=== PATIENT | male | born 1955 | race Caucasian/White ===

== ENCOUNTER 2020-07-26 02:24 | Outpatient (CLI) | payer MEDICARE, SELFPAY ==
[2020-07-27 16:44] LABS: COVID-19 RT-PCR Result NEGATIVE (Negative)
== END 2020-07-26 02:44 ==
PROVIDERS: Visit Provider Nurse Practitioner Gerontology
DX: Z11.59 Encounter for screening for other viral diseases (principal); Z01.818 Encounter for other preprocedural examination
CPT/HCPCS: U0003

== ENCOUNTER 2020-07-29 08:18 | Day surgery (SDC) | payer MEDICARE, SELFPAY ==
[2020-07-29] VITALS (8 sets, daily range): BP systolic 118–140; BP diastolic 73–97; PULSE 70–79; RESP 14–16; TEMP 36–36.4; O2SAT 96–97
--- NOTE | 2020-07-29 07:43 | HPE_ITS ---
Assessment and Plan Assessment and plan (1) Gross hematuria: Status: Acute Assessment and plan: For cystoscopy with retrograde pyelogram. Depending on the findings, we may perform TURBT, stent placement or ureteroscopy History of Present Illness History of Present Illness Chief Complaint: Gross hematuria Narrative: This is a 64-year-old gentleman who has had multiple episodes of gross painless hematuria over the past 6 months. His evaluation has included a renal ultrasound ([facility] 05/2020) which showed an atrophic left kidney with hydronephrosis. No bladder abnormality is seen. He presents for cystoscopy with bilateral retrograde pyelogram to complete his hematuria work-up. We will be prepared to do a transurethral resection of any bladder tumor that is identified cystoscopically. Review of Systems Narrative: No fevers or chills No vision change or dysphasia No thyroid dysfunction. New dx Diabetes Mellitus No shortness of breath, cough or hemoptysis No chest pain or palpitations No nausea, vomiting, hepatitis, ulcers, jaundice, diarrhea or constipation No seizures, strokes or peripheral neuropathy No bleeding disorders or anemia No gout PFSH Medical History Diabetes HTN (hypertension) Obesity Surgical History (Updated 07/29/20 @ 08:56 by Goldie Lopes) History of colonoscopy History of vasectomy Social History Smoking/Tobacco Use Status: Current every day Tobacco Type: cigars Smoking risk assessment performed?: Yes Alcohol Intake: current Alcohol Intake frequency: a few times a month Alcohol type: wine Drug use: Never Substance use type: does not use Details: alcohol: wine, t-3 Do you feel safe at home: Yes Do you feel safe in your relationship?: Yes Meds Home Medications and Allergies Home Medications Medication Instructions Recorded Confirmed Type metformin 500 mg tablet 500 mg PO BID 05/28/20 07/29/20 History aspirin-caffeine [Kimberly Back and 2 tab PO 07/29/20 History Body] Allergies Allergy/AdvReac Type Severity Reaction Status Date / Time No Known Allergies Allergy Verified 07/29/20 08:55 Exam Const General: cooperative and no acute distress Neck Neck: supple Resp Effort & Inspection: normal respiratory effort Auscultation: clear to auscultation bilaterally Cardio Rate: regular rate Rhythm: regular rhythm GI Inspection: obesity Palpation: soft and nontender Neuro General: patient alert, patient awake and patient oriented x3 COVID-19 Screening Have you, or household traveled for leisure in last 14 days?: No Had IN PERSON contact w/suspected or confirmed C-19 person: No
[2020-07-29] MEDS: Lactated Ringers 1,000 ML 80 ML IV (09:16)
[2020-07-29] MEDS: ceFAZolin 1 GM/50 ML BAG IVPB (10:43)
[2020-07-29] MEDS: Lidocaine 2% Jelly 6 ML SYR (10:59)
--- NOTE | 2020-07-29 11:17 | PAPNONF_PTH ---
PATIENT: LORENA GAO LOC: [facility] U#:[id number] AGE/SX: 64/M ROOM: RE07/29/[address]: Ruben Wilkes MD : 1955 BED: DIS: 07/29/2020 SPEC #: [id number] RECD: 07/29/20 13:00 STATUS: JAYESH LOPEZ #: [id number] ROCHELLE: 07/29/20 11:[address]: Ruben Wilkes DEPT: [facility] Cytology RECD BY: Ching Love ENTERED: 07/29/20 13:00 SP TYPE: KANDIS PINA DR: Tobi Hernández Tissues: 1 - BODY FLUID CYTO(SPUTUM/URINE)[facility] Procedures: BODY FLUID CYTO(URINE/SPUTUM) Comments: [id number] (TOTAL VOLUME = 30 ml's) (30 ml's URINE & 30 ml's CYTOLYT ADDED)
[2020-07-29] MEDS: Omnipaque 300 MG/ML 50 ML BTL (11:20)
--- NOTE | 2020-07-29 11:32 | DI.RAD_ITS ---
EXAM: XR RETROGRADE IN OR CLINICAL HISTORY: GROSS HEMATURIA COMPARISON: No exams were available for comparison FINDINGS: C-arm fluoroscopy was utilized by Dr. Wilkes during retrograde ureterography. Please see Dr. Wilkes's procedure note. Fluoro time 210 seconds. RADIATION DOSE DELIVERED: Total DLP Total DLP
--- NOTE | 2020-07-29 11:37 | W.PM.DSUDISC ---
Discharge Plan Disposition Patient Disposition: HOME Condition: Stable Discharge Details Attending Provider: Ruben Wilkes Primary Care Provider: Tobi Hernández Home Meds and New Rx's Prescriptions: No Action metformin 500 mg tablet 500 mg PO BID RF: 0 Kimberly Back and Body 500-32.5 mg Tablet 2 tab PO RF: 0 Discharge Instructions Additional Instructions: Pt will be called by my office to arrange CT scan and cystoscopy, stent removal and ureteroscopy with biopsy or ureteral mass in OR May remove ramírez catheter prior to discharge if urine is transparent - if urine remains dark, may discharge with ramírez to leg bag and we can remove catheter in office once urine becomes transparent Activity:: Activity as Tolerated Shower/Bathe:: 24 hours Diet:: As Tolerated Discharge Orders Discharge Orders: Discharge Order (Routine); Ordered 07/29/20 Ordered By: Ruben Wilkes DS: Diagnosis Discharge Diagnosis (1) Gross hematuria: Status: Acute
--- NOTE | 2020-07-29 11:49 | ROE_ITS ---
Date of service: 07/29/20 Time of Service: 11:50 Operative Note Operative Note DATE OF PROCEDURE: 07/29/20 PRE-OP DIAGNOSIS: Gross hematuria Left hydronephrosis POST-OP DIAGNOSIS: other (same secondary to left ureteral mass) PROCEDURE: Cystoscopy, bilateral retrograde pyelogram, left ureteral aspiration for cytology, insert left ureteral stent SURGEON: Ruben Wilkes ANESTHESIA: other ESTIMATED BLOOD LOSS: 100 PATHOLOGY: other (left ureteral aspiration for cytology) COMPLICATIONS: None Patient was transported to: PACU Patient's condition: stable Implants: 6 Macedonian by 22 to 30 cm left ureteral stent Folety catheter Indications: This is a 64-year-old gentleman who has a history of intermittent gross hematuria. He was evaluated with a renal ultrasound which showed a normal right kidney but the left hydronephrosis with a loss of parenchyma. He presents for cystoscopy with bilateral retrograde pyelogram to complete his hematuria work-up. Findings: Distal left ureteral filling defect with markedly dilated left ureter and upper tracts above level of filling defect Grossly bloody fluid aspirated from ureter above filling defect Procedure Description: The patient was brought to the operating room on 07/29/2020. He was given preoperative IV antibiotics. After successful induction of general anesthesia, he was placed in the dorsal lithotomy position. His genitalia was prepped and draped. 2% Xylocaine jelly was instilled into the urethra to act as a local anesthetic. A 22 Macedonian rigid cystoscope was passed through the urethra into the bladder. The urethra and bladder were inspected with a 30 degree lens. The pendulous, bulbous and membranous urethra was all appeared normal with no strictures. The prostatic urethra showed lateral lobe enlargement and a slightly elevated bladder neck. No papillary or nodular lesions were seen in the prostatic urethra. The bladder neck was entered and the bladder mucosa was inspected. The right ureteral orifice appeared normal. No blood was seen coming from the right side. The left ureteral orifice also appeared normal but I saw no outflow of urine from the left side. I began by cannulating the right ureteral orifice using a 6 Macedonian access catheter. A retrograde pyelogram was then performed by injecting Omnipaque through the access catheter under fluoroscopic guidance. The right ureter and collecting system appeared normal. On the left side, I was able to cannulate the left ureteral orifice and injected Omnipaque. There appeared to be a filling defect in the distal ureter. I was unable to maneuver the access catheter above the level of this filling defect. I was then able to pass a angled tipped guidewire through the lumen of the catheter up above the level of the filling defect. I again injected Omnipaque and found that the remainder of the ureter was markedly dilated the renal pelvis and collecting system was markedly dilated as well. Aspiration of fluid from the ureter revealed dark brown old blood and a hydronephrotic drip. I collected this fluid and sent it to pathology for cytology exam. I was then able to pass a guidewire up to the level of the renal pelvis. I passed a 6 Macedonian variable length stent over the wire and positioned the stent such that one end was curled in the upper ureter (not the renal pelvis) and the other end was curled within the bladder. Once the stent was placed, a large amount of dark urine was draining from that left kidney. I passed an 18 Macedonian Quigley catheter through the urethra into the bladder. I inflated the catheter balloon with 10 cc of sterile water and hand irrigated the catheter. The catheter was then hooked to gravity drainage. Based on today's findings, I am concerned that he has a urothelial carcinoma of the distal ureter. The bloody fluid made it impossible to visualize the mass ureteroscopically today. We will plan to return to the operating room in a week or so to do ureteroscopy and possible ureteral biopsy. The patient tolerated this procedure well.
[2020-07-29] MEDS: Phenazopyridine 200 MG TAB PO (12:42)
== END 2020-07-29 15:30 | disposition home or self-care (01) ==
PROVIDERS: PCP Family Medicine; Visit Provider Urology
PROC: (CPT 74450; principal; 2020-07-29 09:30)
DX: R31.0 Gross hematuria (principal); E11.9 Type 2 diabetes mellitus without complications; I10 Essential (primary) hypertension; F17.290 Nicotine dependence, other tobacco product, uncomplicated
CPT/HCPCS: 52332; 52351; NC; 74420; 88104; J0690; J2001; J2405; J2704; Q9967

== ENCOUNTER → 2020-07-31 09:39 | Outpatient (BNVA) | payer MEDICARE, SELFPAY | PROVIDERS: PCP Family Medicine; Referring Provider Family Medicine; Visit Provider Nurse Practitioner Gerontology | DX: Z48.816 Encounter for surgical aftercare following surgery on the genitourinary system (principal); R31.0 Gross hematuria | CPT/HCPCS: 99213 ==

== ENCOUNTER → 2020-08-30 04:31 | Outpatient (CLI) | payer MEDICARE, SELFPAY ==
--- NOTE | 2020-08-30 07:00 | DI.CT_ITS ---
EXAM: CT ABDOMEN PELVIS WO/W CLINICAL HISTORY: r/o local extension/mets,GROSS HEMATURIA,R31.0,URETERAL MASS,N28.89 TECHNIQUE: Imaging Protocol: Axial computed tomography images with coronal and sagittal reformatted images were created and reviewed CONTRAST MATERIAL: Intravenous: Omnipaque 350 Contrast volume:100 mL Oral: Yes COMPARISON: RF XR RETROGRADE IN OR from 07/29/2020 RF XR RETROGRADE IN OR from 07/29/2020 FINDINGS: ABDOMEN: Lung Bases: Normal where visualized. Liver: Diffuse decreased density consistent with fatty infiltration. There are a few tiny hypodensit ies in the right lobe of the liver. They are too small for further characterization but likely refle ct small cysts. Portal, Superior Mesenteric, and Splenic Veins: Unremarkable. Gallbladder and Biliary Tract: Cholelithiasis. No biliary ductal dilatation. Pancreas: Normal density, no abnormal calcifications or inflammatory process. Spleen: Normal. Adrenals: No masses seen. Kidneys: The right kidney shows normal enhancement. Nonobstructing stones are seen in the right kidn ey. No evidence of a right renal mass. There is a soft tissue mass seen in the distal 3rd of the le ft ureter measuring approximately 4.2 cm in length. There is no extension beyond the ureter into the adjacent soft tissues. There is marked hydronephrosis and hydroureter proximally. There is diffuse marked left renal cortical atrophy. There is a left nephroureteral stent in place. The proximal pi gtail is seen in the ureter distal to the ureteral pelvic junction. There is no excretion of contras t from the left kidney seen on the delayed images. Abdominal Aorta: Abdominal portion non-dilated. Bowel: No obstruction or bowel wall thickening. Appendix is unremarkable. Peritoneal Cavity: No ascites, collection or mesenteric inflammatory response. Lymph Nodes: Within normal limits. Bones: Degenerative changes are seen in the spine. No suspicious lytic or sclerotic lesions are seen in the bones. Soft Tissues: Unremarkable. PELVIS: Bladder: The distal left pigtail is seen in the urinary bladder. The urinary bladder is otherwise un remarkable. Reproductive Organs: The prostate gland is enlarged and impinges upon the base of the urinary bladder . Lymph Nodes: Within normal limits. Bones: No suspicious lytic or sclerotic lesions are seen in the bones. IMPRESSION: 1. 4.2 cm soft tissue mass in the distal left ureter causing marked hydronephrosis. There is marked l eft renal cortical atrophy. No excretion of contrast is seen from the left kidney on the 7 minutes de layed images. No evidence of involvement of the surrounding soft tissues by the distal ureteral mass. 2. No evidence of metastatic disease. 3. Enlarged prostate gland with management on the base of the urinary bladder. While this may represe nt benign hypertrophy of the prostate, mass cannot be excluded. 4. Hepatic steatosis. 5. Cholelithiasis. No biliary ductal dilatation. RADIATION DOSE DELIVERED: 3,438.98mGy.cm Total DLP 3,438.98mGy.cm Total DLP DATA REPOSITORY: All CT scans at this facility are submitted to the National Radiology Data Registry (NRDR) Dose Index Registry (DIR) with the [employer] (ACR). RADIATION OPTIMIZATION: All CT scans at this facility use at least one of these dose optimization te chniques: automated exposure control; mA and/or kV adjustment per patient size (includes targeted exa ms where dose is matched to clinical indication); or iterative reconstruction.
[2020-08-30 09:28] LABS: CREATININE 1.46 mg/dL (0.70-1.30); Estimated GFR 48.31 (mL/min/1.73m2)
[2020-08-30] MEDS: Omnipaque 350 MG/ML 100 ML BTL IJ (10:17)
[2020-08-30] MEDS: Normal Saline - Diluent 50 ML VIAL IV (10:18)
== END ==
PROVIDERS: PCP Family Medicine; Visit Provider Urology
DX: R31.0 Gross hematuria (principal); N28.89 Other specified disorders of kidney and ureter; N40.1 Benign prostatic hyperplasia with lower urinary tract symptoms; K76.0 Fatty (change of) liver, not elsewhere classified; K80.20 Calculus of gallbladder without cholecystitis without obstruction
CPT/HCPCS: 74178; 82565; J3490

== ENCOUNTER → 2020-09-06 10:06 | Outpatient (BNVA) | payer MEDICARE, SELFPAY | PROVIDERS: PCP Family Medicine; Referring Provider Family Medicine; Visit Provider Urology | DX: N28.89 Other specified disorders of kidney and ureter (principal) | CPT/HCPCS: 99213; 99443 ==

== ENCOUNTER 2020-09-19 02:35 | Outpatient (CLI) | payer MEDICARE, SELFPAY ==
[2020-09-20 13:39] LABS: COVID-19 RT-PCR UVMMC Result Negative (Negative)
== END 2020-09-19 02:55 ==
PROVIDERS: PCP Family Medicine; Visit Provider Urology
DX: Z11.52 Encounter for screening for COVID-19 (principal)
CPT/HCPCS: U0003

== ENCOUNTER 2020-09-23 07:18 | Day surgery (SDC) | payer MEDICARE, SELFPAY ==
[2020-09-23 07:28] VITALS: BP 128/79; PULSE 85; RESP 16; TEMP 36.3; O2SAT 96
[2020-09-23] MEDS: Lactated Ringers 1,000 ML 80 ML IV (08:06)
--- NOTE | 2020-09-23 08:12 | HPE_ITS ---
Date of service: 09/23/20 Time of Service: 08:13 Assessment and Plan Assessment and plan (1) Ureteral mass: Status: Acute Assessment and plan: His urine cytology was normal, but his CT documents a distal ureteral mass. I will remove his stent and do distal ureteroscopy with biopsy of the mass. History of Present Illness History of Present Illness Chief Complaint: Left ureteral mass Narrative: This is a 65-year-old gentleman who has a history of gross hematuria. His evaluation showed left hydronephrosis and loss of left-sided renal parenchyma. I did a cystoscopy and retrograde pyelogram. There appeared to be a mass in the distal left ureter. I was unable to get a ureteroscope up to the mass, so I placed a ureteral stent. A large amount of bloody fluid was obtained. The fluid was sent to the pathology lab for cytology exam. No malignant cells were identified. The stent has now been in for nearly 2 months. He had a CT urogram that confirmed the mass in the ureter but no obvious local or distant metastases. He presents for cystoscopy with stent removal ureteroscopy and biopsy of the mass. Review of Systems Narrative: No fevers or chills No vision change or dysphasia No diabetes or thyroid No shortness of breath, cough or hemoptysis No chest pain or palpitations No nausea, vomiting, hepatitis, ulcers, jaundice, diarrhea or constipation No seizures, strokes or peripheral neuropathy No bleeding disorders or anemia No gout [facility] Medical History Diabetes HTN (hypertension) Obesity Ureteral mass Surgical History History of colonoscopy History of vasectomy Social History Smoking/Tobacco Use Status: Current every day Tobacco Type: cigars Smoking risk assessment performed?: Yes Alcohol Intake: current Alcohol Intake frequency: a few times a month Alcohol type: wine Drug use: Never Substance use type: does not use Details: alcohol: wine, t-3 Do you feel safe at home: Yes Do you feel safe in your relationship?: Yes Meds Home Medications and Allergies Home Medications Medication Instructions Recorded Confirmed Type metformin 500 mg tablet 500 mg PO BID 05/28/20 09/23/20 History aspirin-caffeine [Kimberly Back and 2 tab PO TID PRN PRN 07/29/20 09/23/20 History Body] Allergies Allergy/AdvReac Type Severity Reaction Status Date / Time No Known Allergies Allergy Verified 09/20/20 17:15 Exam Const General: cooperative and no acute distress Resp Effort & Inspection: normal respiratory effort Auscultation: clear to auscultation bilaterally Cardio Rate: regular rate Rhythm: regular rhythm GI Palpation: soft and no masses Neuro General: patient alert, patient awake and patient oriented x3 Results Last Vital Signs Temp 36.3 C L 09/23/20 07:28 Pulse 85 09/23/20 07:28 Resp 16 09/23/20 07:28 BP 128/79 09/23/20 07:28 Pulse Ox 96 09/23/20 07:28 COVID-19 Screening Have you, or household traveled for leisure in last 14 days?: Yes Had IN PERSON contact w/suspected or confirmed C-19 person: No
[2020-09-23] MEDS: ceFAZolin 2 GM/50 ML BAG IVPB (08:51)
[2020-09-23] MEDS: Lidocaine 2% Jelly 6 ML SYR (09:03)
--- NOTE | 2020-09-23 09:19 | URETHRABX_PTH ---
PATIENT: LORENA GAO LOC: [facility] U#:[id number] AGE/SX: 65/M ROOM: RE09/23/[address]: Ruben Wilkes MD : 1955 BED: DIS: 09/23/2020 SPEC #: [id number] RECD: 09/23/20 13:04 STATUS: JAYESH LOPEZ #: [id number] ROCHELLE: 09/23/20 09:[address]: Ruben Wilkes DEPT: Surgical Specimen RECD BY: Ching Love ENTERED: 09/23/20 13:04 SP TYPE: URETHRABX OTHR DR: Tobi Hernández Tissues: 1 - URETHRA BIOPSY Procedures: GROSS AND MICRO LEVEL 4 Comments: [id number]
--- NOTE | 2020-09-23 09:19 | PAPNONF_PTH ---
PATIENT: LORENA GAO LOC: [facility] U#:[id number] AGE/SX: 65/M ROOM: RE09/23/[address]: Ruben Wilkes MD : 1955 BED: DIS: 09/23/2020 SPEC #: [id number] RECD: 09/23/20 13:18 STATUS: JAYESH LOPEZ #: [id number] ROCHELLE: 09/23/20 09:[address]: Ruben Wilkes [facility]PT[facility] Cytology RECD BY: Ching Love ENTERED: 09/23/20 13:18 SP TYPE: KANDIS PINA DR: Tobi Hernández Tissues: 1 - BODY FLUID CYTO(SPUTUM/URINE)[facility] Procedures: BODY FLUID CYTO(URINE/SPUTUM) Comments: [id number] (TOTAL VOLUME = 90 ml's) (45 ml's URINE & 45 ml's CYTOLYT ADDED IN 2 CONTAINERS)
--- NOTE | 2020-09-23 09:32 | DI.RAD_ITS ---
EXAM: XR RETROGRADE IN OR CLINICAL HISTORY: distal ureteral mass TECHNIQUE: 2D and realtime digital imaging was performed. CONTRAST MATERIAL: Refer to procedure report. COMPARISON: No exams were available for comparison FINDINGS: Fluoroscopy was provided for Dr. Wilkes during the performance of a retrograde evaluation of the danica l collecting system. Please refer to the procedure report for complete details. Fluoro time: 7.5 seconds IMPRESSION: RADIATION DOSE DELIVERED:
--- NOTE | 2020-09-23 09:40 | W.PM.DSUDISC ---
Discharge Plan Disposition Patient Disposition: HOME Condition: Stable Discharge Details Reason For Visit: ureteral mass Attending Provider: Ruben Wilkes Primary Care Provider: Tobi Hernández Home Meds and New Rx's Prescriptions: No Action metformin 500 mg tablet 500 mg PO BID RF: 0 Kimberly Back and Body 500-32.5 mg Tablet 2 tab PO TID PRN PRNRF: 0 Discharge Instructions Additional Instructions: Followup @ 2 weeks to review surgical pathology and cytology Activity:: Activity as Tolerated Shower/Bathe:: 24 hours Diet:: As Tolerated Discharge Orders Discharge Orders: Discharge Order (Routine); Ordered 09/23/20 Ordered By: Ruben Wilkes DS: Diagnosis Discharge Diagnosis (1) Ureteral mass: Status: Acute
--- NOTE | 2020-09-23 09:42 | W.PM.OP ---
Date of service: 09/23/20 Time of Service: 09:43 Operative Note Operative Note DATE OF PROCEDURE: 09/23/20 PRE-OP DIAGNOSIS: Left ureteral mass POST-OP DIAGNOSIS: same PROCEDURE: cystoscopy, remove left ureteral stent, left ureteroscopy with biopsy of ureteral mass, left ureteral cytology SURGEON: Ruben Wilkes ANESTHESIA: other (General without intubation) ESTIMATED BLOOD LOSS: 25 PATHOLOGY: other (1. Ureteral biopsies 2. Urine cytology) COMPLICATIONS: None Patient was transported to: same day Patient's condition: stable Indications: This is a 65-year-old gentleman who has a history of hematuria. He was identified as having left hydronephrosis with loss of renal parenchyma. He had been done a cystoscopy and retrograde pyelogram. We found a left distal ureteral mass. I was unable to pass the ureteroscope up to take a biopsy at his initial procedure, so I placed a ureteral stent. A large amount of bloody urine was obtained from up in the kidney. The cytology from this bloody urine showed no abnormalities. He subsequently had a CT scan which confirmed the presence of an intraureteral mass with no external lesions. He comes in now for ureteroscopy with biopsy of his documented ureteral mass Findings: Large distal ureteral mass with papillary and nodular appearance Procedure Description: The patient was brought to the operating room on 09/23/2020. After successful induction of general anesthesia, he was placed in the dorsal lithotomy position. His genitalia was prepped. 2% Xylocaine jelly was instilled into the urethra to act as a local anesthetic. A 22 Belizean rigid cystoscope was passed through the urethra into the bladder. The urethra and bladder were inspected with a 30 degree lens. The pendulous, bulbous and membranous urethra was all appeared normal with no strictures. The prostatic urethra showed some lateral lobe enlargement. The bladder neck was entered and the bladder mucosa was inspected. A stent could be seen protruding from the left ureteral orifice. The end of the stent was grabbed with alligator forceps and brought out to the level of the urethral meatus. A Glidewire was passed through the lumen of the ureteral stent. The stent was removed leaving the wire in place. I then used a semirigid ureteroscope that I passed along the urethra into the bladder. The scope was then advanced up the left distal ureter and a large mass was seen within the ureteral lumen. The mass had components that appeared both papillary and nodular. We obtained some small biopsies using a ureteral biopsy forceps. I obtained some larger pieces of tissue using a stone basket. All resected tissue was sent to pathology for permanent section. I then passed a 6 Belizean open-ended access catheter up to the level of the mid. I used barbotage with saline and collected a sample of this fluid to send for cytology. The patient tolerated this procedure well with no complications.
[2020-09-23] MEDS: Phenazopyridine 200 MG TAB PO (10:11)
[2020-09-23 10:30] VITALS: BP 111/66; PULSE 66; RESP 16; TEMP 36.1; O2SAT 97
== END 2020-09-23 10:50 | disposition home or self-care (01) ==
PROVIDERS: PCP Family Medicine; Visit Provider Urology
PROC: (CPT 74450; principal; 2020-09-23 08:45)
DX: R82.998 Other abnormal findings in urine (principal); N28.89 Other specified disorders of kidney and ureter; E11.9 Type 2 diabetes mellitus without complications
CPT/HCPCS: 52354; 88305; NC; 74420; 88104; J0690; J1885; J2001; J2405; Q9967

== ENCOUNTER → 2020-09-25 11:44 | Outpatient (BNVA) | payer MEDICARE, SELFPAY | PROVIDERS: PCP Family Medicine; Referring Provider Family Medicine; Visit Provider Nurse Practitioner Gerontology | DX: N28.89 Other specified disorders of kidney and ureter (principal); Z98.890 Other specified postprocedural states | CPT/HCPCS: 99214 ==

== ENCOUNTER → 2020-10-08 15:14 | Outpatient (BNVA) | payer MEDICARE, SELFPAY | PROVIDERS: PCP Family Medicine; Referring Provider Family Medicine; Visit Provider Urology | DX: N28.89 Other specified disorders of kidney and ureter (principal) | CPT/HCPCS: 99213; 99443 ==